=== PATIENT | male | born 1955 | race Two or more races ===

== ENCOUNTER 2023-08-02 08:42 | Emergency (ER) | payer OTHER ==
[~2023-08-02] VITALS: Ht 170.2 cm; Wt 101.0 kg
[2023-08-02 08:47] VITALS: TEMP 97.6
[2023-08-02 08:59] VITALS: BP 121/91; PULSE 83; RESP 16; O2SAT 97
[2023-08-02] MEDS: HYDROcodone-ACET 5/325MG TAB PO ONE (10:11)
[2023-08-02] MEDS ORDERED: MELO7.5T7 PO (11:13)
== END 2023-08-02 11:10 | disposition home or self-care (01) ==
LOC: ER 08:42
DX: S32.038A Other fracture of third lumbar vertebra, initial encounter for closed fracture (principal); W11.XXXA Fall on and from ladder, initial encounter; Y93.89 Activity, other specified; Y92.096 Garden or yard of other non-institutional residence as the place of occurrence of the external cause; Y99.8 Other external cause status
CPT/HCPCS: 72131